=== PATIENT | female | born 2005 | race Two or more races ===

== ENCOUNTER → 2024-06-16 | Outpatient (CLI) | payer BC, OTHER, SELFPAY ==
--- NOTE | 2024-06-16 09:30 | XR_ITS ---
Examination: Upper GI series with KUB Fluoroscopy 15 spot fluoroscopic films of the esophagus and stomach Exam date and time: 2024 1151 hours INDICATIONS: Severe bloating vomiting heartburn reflux 2 years TECHNIQUE AND FINDINGS: Hr Clerk AP supine abdomen moderate to large amounts of stool throughout the colon Patient swallowed thin barium with 15 spot fluoroscopic films obtained of the esophagus stomach duodenum Fluoroscopy 0.29 minute. Primary peristaltic esophageal waves Mild intermittent gastroesophageal reflux No constricting esophageal lesion No gastric mass deformity or ulceration. Duodenal bulb expands symmetrically Duodenal sweep and small bowel visualizes unremarkable IMPRESSION: Mild intermittent gastroesophageal reflux
== END | disposition home or self-care (01) ==
PROVIDERS: PCP Pediatrics; Referring Provider Pediatrics; Visit Provider Pediatrics
DX: K21.9 Gastro-esophageal reflux disease without esophagitis (principal)
CPT/HCPCS: 74240; Z7610